=== PATIENT | male | born 1975 | race Caucasian/White ===

== ENCOUNTER 2016-12-12 19:39 | Emergency (ER) | payer OTHER ==
[~2016-12-12] VITALS: Ht 180.3 cm; Wt 79.4 kg
[2016-12-12] MEDS ORDERED: LISI10TA2 PO (19:58)
[2016-12-12] MEDS ORDERED: ROSU10TA PO (19:58)
[2016-12-12] MEDS ORDERED: ASPI-586 PO (19:58)
--- NOTE | 2016-12-12 21:02 | Diagnostic Imaging Report ---
INDICATION: Inhalation event while cooking. TECHNIQUE: Two view chest 8:21 PM CORRELATION STUDY: None FINDINGS: The heart size, mediastinal configuration and pulmonary vasculature are within normal limits. The lungs are clear with no consolidating infiltrate. There is no significant pleural effusion or pneumothorax. Visualized osseous structures are unremarkable. IMPRESSION: 1. Negative -2 view chest. Dictated by: Dictated on workstation # [id number]
--- NOTE | 2016-12-12 21:14 | Diagnostic Imaging Report ---
INDICATION: Cooking when accidentally inhaled a bay leaf. Feels like in throat. TECHNIQUE: AP and lateral view soft tissue neck. CORRELATION STUDY: None FINDINGS: Thoracic spinal alignment relatively anatomic. Prevertebral soft tissues unremarkable. Airway unremarkable. Definitive radiographic foreign body is not visualized. However, reported inhaled leaf would likely be radiographically occult. IMPRESSION: 1. Unremarkable soft tissue neck examination. Dictated by: Dictated on workstation # [id number]
--- NOTE | 2016-12-12 21:15 | ED EENT ---
History of Present Illness General Chief Complaint: Foreign Body Stated Complaint: INHALED A BAY LEAF Nursing Triage Note: PT REPORTS HE INHALED BAY LEAF ET CAN FEEL IT IN HIS THROAT, MOVING UP ET DOWN. HE IS ABLE TO SWALLOW FLUIDS. HE REPORTS IT IS MAKING HIM INCREASINGLY ANXIOUS ET HE DIDN'T WANT TO BECOME TO ANXIOUS IN FRONT OF HIS KIDS AT HOME. Source: patient History of Present Illness Time seen by provider: 19:53 Initial Comments PT STATES HE WAS COOKING CHILI, AND TOOK A BITE AND SWALLOWED A COUPLE OF LITTLE BAY LEAVES AND FEELS LIKE ONE IS STUCK IN HIS THROAT OCCURRED 30 MINUTES AGO STATES HE FEELS LIKE THE ROUGH EDGES ARE SCRATCHING HIS THROAT AT TIMES AND MOVING IN HIS THROAT, AND IT IS MAKING HIM FEEL REAL ANXIOUS NO PROBLEMS BREATHING OR WHEEZING NO PROBLEMS SWALLOWING SALIVA. DID TRY TO GARGLE VERY BRIEFLY, BUT THEN JUST CAME HERE HAS NOT TRIED TO EAT OR DRINK SINCE THIS HAPPENED. NO HISTORY OF SIMILAR PCP: DR. CONTRERAS, BENJAMIN Allergies and Home Medications Allergies Coded Allergies: No Known Drug Allergies (Unverified , 12/12/16) Home Medications Aspirin 81 Mg Tablet.dr, 81 MG PO DAILY, (Reported) Lisinopril 10 Mg Tablet, 10 MG PO DAILY, (Reported) Rosuvastatin Calcium 10 Mg Tablet, 10 MG PO DAILY, (Reported) Review of Systems Constitutional: no symptoms reported Eyes: No Symptoms Reported Ears: No Symptoms Reported Nose: no symptoms reported Throat: see HPI Respiratory: no symptoms reported Cardiovascular: no symptoms reported Gastrointestinal: no symptoms reported Musculoskeletal: no symptoms reported Skin: no symptoms reported Neurological: See HPI, Anxiety Past Mloqfsc-Ipaadk-Clllad Hx Patient Social History Alcohol Use: Occasionally Uses Recreational Drug Use: No Smoking Status: Never a Smoker Recent Foreign Travel: No Contact w/Someone Who Travel: No Recent Infectious Disease Expo: No Recent Hopitalizations: No Surgeries HX Surgeries: No Respiratory Hx Respiratory Disorders: No Cardiovascular Hx Cardiac Disorders: Yes (STATES HE HAS "3 LESIONS ON HIS RIGHT MAIN CORONARY ARTERY" FOUND ON A CT SCAN, TATE SNOT HAD A CARDIAC CATH OR STRESS TEST. ) Cardiac Disorders: Coronary Artery Disease, High Cholesterol, Hypertension Neurological Hx Neurological Disorders: No Genitourinary Hx Genitourinary Disorders: No Gastrointestinal Hx Gastrointestinal Disorders: No Musculoskeletal Hx Musculoskeletal Disorders: No Endocrine Hx Endocrine Disorders: No HEENT HX ENT Disorders: No Cancer Hx Cancer: No Psychosocial Hx Psychiatric Problems: Yes Behavioral Health Disorders: Anxiety, Depression Integumentary HX Skin/Integumentary Disorder: No Blood Transfusions Hx Blood Disorders: No Family Medical History Significant Family History: CAD Under 55 Years Old (FATHER) Physical Exam Vital Signs Vital Sign - Last 12Hours 12/12/16 12/12/16 19:52 21:22 Temp 98.2 Pulse 89 Resp 22 B/P (MAP) 138/84 Pulse Ox 95 General Appearance: WD/WN, no apparent distress Mouth/Throat: normal mouth inspection, pharynx normal, No excessive drooling Neck: normal inspection Cardiovascular: regular rate, rhythm, no edema, no murmur Respiratory: normal breath sounds, no respiratory distress Neurologic/Psychiatric: anvilsmith II-XII nml as tested, no motor/sensory deficits, alert, oriented x 3 Skin: normal color, warm/dry Progress/Results/Core Measures Results/Orders My Orders Orders - DEYVI DEVINE DO Chest Pa/Lat (2 View) (12/12/16 19:55) Soft Tissue Neck (12/12/16 20:00) Vital Signs/I&O Vital Sign - Last 12Hours 12/12/16 12/12/16 19:52 21:22 Temp 98.2 Pulse 89 81 Resp 22 16 B/P (MAP) 138/84 Pulse Ox 95 Blood Pressure Mean: 102 Progress Note : Progress Note UNEVENTFUL ER STAY PT ADVISED OF POSSIBLE ABRASION TO THE AREA, OR POSSIBLE RESIDUAL FOOD / REPORTED BAY LEAF, STUCK IN THROAT PT ADVISED TO RETURN TO ER IF SYMPTOMS WORSEN OR IF HE HAS DIFFICULTY SWALLOWING OR BREATHING Diagnostic Imaging Comments CXR--NO ACUTE PROCESS NECK SOFT TISSUE XRAYS--NO ACUTE PROCESS PER RADIOLOGIST REPORTS AT 2115 Reviewed: Reviewed by Me Departure Impression Impression: Primary Impression: Foreign body sensation in throat Disposition: 01 HOME, SELF-CARE Condition: Stable Departure-Patient Inst. Referrals: NO,LOCAL PHYSICIAN (PCP) Primary Care Physician Patient Instructions: Foreign Body, Swallowed, Adult (DC) Add. Discharge Instructions: EATING AND DRINKING USUAL FOLLOW UP WITH YOUR DR IN 1-2 DAYS IF NO IMPROVEMENT RETURN TO ER IF WORSE All discharge instructions reviewed with patient and/or family. Voiced understanding. DEYVI DEVINE DO December 12, 2016 21:15
[2016-12-12 21:22] VITALS: BP 131/91
== END 2016-12-12 21:22 | disposition home or self-care (01) ==
LOC: ER 19:44
DX: R09.89 Other specified symptoms and signs involving the circulatory and respiratory systems (principal)
CPT/HCPCS: 70360; 71020; 99282

== ENCOUNTER → 2018-08-29 | Outpatient (CLI) | payer BC ==
[~2018-08-29] MED LIST: ASPI-586 PO; LISI10TA2 PO; ROSU10TA PO
[2018-08-29 11:18] LABS: BASOPHILS % (AUTO) 0 % (0-10); EOSINOPHILS # (AUTO) 0.1 10^3/uL (0.0-0.3); EOSINOPHILS % (AUTO) 2 % (0-10); HEMATOCRIT 39 % (40-54); LYMPHOCYTES % (AUTO) 37 % (12-44); MEAN CORPUSCULAR HEMOGLOBIN 32 PG (25-34); MEAN CORPUSCULAR HGB CONC 36 G/DL (32-36); MEAN CORPUSCULAR VOLUME 88 FL (80-99); MEAN PLATELET VOLUME 9.2 FL (7.4-10.4); MONOCYTES # (AUTO) 0.4 X 10^3 (0.0-1.0); MONOCYTES % (AUTO) 7 % (0-12); NEUTROPHILS % (AUTO) 54 % (42-75); PLATELET COUNT 219 10^3/uL (130-400); RED CELL DISTRIBUTION WIDTH 12.2 % (10.0-14.5); WHITE BLOOD COUNT 5.5 10^3/uL (4.3-11.0)
[2018-08-29 11:42] LABS: ALANINE AMINOTRANSFERASE 52 U/L (0-55); ALBUMIN 4.6 GM/DL (3.2-4.5); ALKALINE PHOSPHATASE 50 U/L (40-136); BILIRUBIN,TOTAL 0.5 MG/DL (0.1-1.0); BUN/CREATININE RATIO 18; CALCIUM 9.6 MG/DL (8.5-10.1); CARBON DIOXIDE 23 MMOL/L (21-32); CHLORIDE 105 MMOL/L (98-107); CHOLESTEROL 153 MG/DL (< 200); CREATININE SERUM 0.78 MG/DL (0.60-1.30); GFR ESTIMATED > 60; GLUCOSE 101 MG/DL (70-105); HDL CHOLESTEROL 38 MG/DL (40-60); SODIUM 139 MMOL/L (135-145); TOTAL PROTEIN 7.5 GM/DL (6.4-8.2); TRIGLYCERIDES 155 MG/DL (<150); VLDL CHOLESTEROL 31 MG/DL (5-40)
== END ==
LOC: LAB 11:01
PROVIDERS: ATTEND Family Medicine
DX: Z00.00 Encounter for general adult medical examination without abnormal findings (principal); E78.5 Hyperlipidemia, unspecified; I10 Essential (primary) hypertension; R35.0 Frequency of micturition; R35.1 Nocturia; Z83.3 Family history of diabetes mellitus
CPT/HCPCS: 36415; 80053; 80061; 83036; 84153; 85025

== ENCOUNTER 2019-07-02 11:16 | Outpatient (RCR) | payer BC ==
[~2019-07-02 11:16] MED LIST changes: -ROSU10TA PO; +ROSU10TA22 PO
== END 2019-09-30 | disposition home or self-care (01) ==
LOC: LAB 11:16
PROVIDERS: ATTEND Obstetrics & Gynecology
DX: N46.9 Male infertility, unspecified (principal)
CPT/HCPCS: 89320

== ENCOUNTER → 2021-09-22 | Outpatient (CLI) | payer BC ==
[~2021-09-22] MED LIST changes: +BUPR150T24 PO; +CLON1TAB13 PO; +DOXE100C4 PO; -LISI10TA2 PO; +LISI10TA25 PO; +MULT-1136 PO; +MV-M1TAB20 PO; +OMEP40CA6 PO; +OMG1KC PO
[2021-09-22 08:42] LABS: HEMATOCRIT 41 % (40-54); HEMOGLOBIN 14.5 g/dL (13.3-17.7); MEAN CORPUSCULAR HEMOGLOBIN 31 pg (25-34); MEAN CORPUSCULAR HGB CONC 35 g/dL (32-36); MEAN CORPUSCULAR VOLUME 89 fL (80-99); MEAN PLATELET VOLUME 9.5 fL (9.0-12.2); PLATELET COUNT 204 10^3/uL (130-400); WHITE BLOOD COUNT 6.8 10^3/uL (4.3-11.0)
[2021-09-22 09:02] LABS: ALBUMIN 4.3 GM/DL (3.2-4.5); BILIRUBIN,TOTAL 0.6 MG/DL (0.1-1.0); CALCIUM 9.5 MG/DL (8.5-10.1); CREATININE SERUM 0.89 MG/DL (0.60-1.30); POTASSIUM 4.2 MMOL/L (3.6-5.0); TOTAL PROTEIN 7.7 GM/DL (6.4-8.2)
== END ==
LOC: LAB 08:17
DX: Z00.00 Encounter for general adult medical examination without abnormal findings (principal); E78.2 Mixed hyperlipidemia
CPT/HCPCS: 36415; 80053; 80061; 84443; 85027

== ENCOUNTER 2021-09-25 05:35 | Outpatient (RCR) | payer BC ==
[~2021-09-25] VITALS: Ht 180.3 cm; Wt 76.0 kg
[2021-09-27] MEDS ORDERED: PANT40TA2 PO (12:26)
== END 2021-10-09 | disposition home or self-care (01) ==
LOC: PREOP 05:35
PROVIDERS: ATTEND Surgery
DX: Z01.812 Encounter for preprocedural laboratory examination (principal); Z12.11 Encounter for screening for malignant neoplasm of colon; K21.9 Gastro-esophageal reflux disease without esophagitis; Z20.822 Contact with and (suspected) exposure to COVID-19
CPT/HCPCS: 87635

== ENCOUNTER 2021-09-27 11:28 | Day surgery (SDC) | payer BC ==
[~2021-09-27] VITALS: Ht 180 cm; Wt 76.0 kg
[2021-09-27] MEDS ORDERED: LACTATED RINGERS 1,000 ML IV ONE (11:36)
[2021-09-27 11:40] VITALS: BP 134/79
[2021-09-27] MEDS ORDERED: LACTATED RINGERS 1,000 ML IV STA (11:46)
[2021-09-27] MEDS ORDERED: LIDOCAINE JELLY 2% 6 ML SYRINGE MM PRN (12:00)
[2021-09-27] MEDS ORDERED: HURRICAINE EXT TUBE (BENZOCAINE) XX PRN (12:00)
--- NOTE | 2021-09-27 12:25 | Progress Note-Pre Operative ---
Pre-Operative Progress Note H&P Reviewed The H&P was reviewed, patient examined and no changes noted. Date Seen by Provider: Sep 27, 2021 Time Seen by Provider: 12:00 Date H&P Reviewed: Sep 27, 2021 Time H&P Reviewed: 12:00 Pre-Operative Diagnosis: GERD, screening colo EMILY AREVALO MD Sep 27, 2021 12:25
[2021-09-27] MEDS ORDERED: PANT40TA2 PO (12:26)
--- NOTE | 2021-09-27 12:27 | Discharge Inst-Surgical ---
D/C Lap Instructions-IRINA Follow Up Appt in 2 weeks Activity as tolerated High Fiber Diet 25g or more per day Avoid Alcohol, Caffeine, Spicy [place] and Acid foods. Drink 64 fluid oz or more of fluids per day. Symptoms to Report: Fever over 101 degree F, Nausea/Vomiting If any problems/questions: Contact your physician or go to Emergency Room EMILY AREVALO MD Sep 27, 2021 12:27
[2021-09-27] MEDS ORDERED: ONDANSETRON 4 MG (ZOFRAN) ORAL DISSOLVE TAB PO PRN (12:30)
[2021-09-27] MEDS ORDERED: ONDANSETRON 4 MG/2 ML (SDV) Z0FRAN IVP PRN (12:30)
[2021-09-27] MEDS ORDERED: PROPOFOL INJECTION 50 ML IV ONE (13:40)
[2021-09-27] MEDS ORDERED: MIDAZOLAM 2 MG/2 ML (VERSED) VIAL ONE (13:59)
[2021-09-27 14:40] VITALS: BP 97/54
--- NOTE | 2021-09-27 14:42 | Anesthesia-General Post-Op ---
MAC Patient Condition Mental Status/LOC: Same as Preop Cardiovascular: Satisfactory Nausea/Vomiting: Absent Respiratory: Satisfactory Pain: Controlled Complications: Absent Post Op Complications Complications None Follow Up Care/Instructions Patient Instructions None needed. Anesthesiology Discharge Order Discharge Order Patient is doing well, no complaints, stable vital signs, no apparent adverse anesthesia problems. No complications reported per nursing. GERALDO SAXENA CRNA Sep 27, 2021 14:42
[2021-09-27 14:45] VITALS: BP 99/58
[2021-09-27 14:50] VITALS: BP 115/69
--- NOTE | 2021-09-27 14:51 | Progress Note-Post Operative ---
Post-Operative Progess Note Surgeon (s)/[employer] (s) Surgeon EMILY AREVALO MD [employer]: none Pre-Operative Diagnosis GERD, screening colo Post-Operative Diagnosis reflux esophagitis(grade 2), small HH(2cm), moderate gastritis. normal colon and rectum Procedure & Operative Findings Date of Procedure 09/27/21 Procedure Performed/Findings EGD with bx. colonoscopy. Anesthesia Type mac Estimated Blood Loss Estimated blood loss (mL): minimal Specimens/Packing Specimens Removed ge jxn, antrum EMILY AREVALO MD Sep 27, 2021 14:51
[2021-09-27 15:20] VITALS: BP 140/83
[2021-09-27 15:33] VITALS: BP 140/83
--- NOTE | 2021-09-27 17:23 | OPERATIVE REPORT ---
DATE OF SERVICE: 09/27/2021 ATTENDING PRIMARY CARE PHYSICIAN: Anirudh Lozada MD PREOPERATIVE DIAGNOSES: Gastroesophageal reflux disease, screening colonoscopy. POSTOPERATIVE DIAGNOSES: Reflux esophagitis, Gordon grade II, small hiatal hernia approximately 2 cm in size, moderate gastritis, normal colon and rectum. PROCEDURE: EGD with biopsy, colonoscopy. SURGEON: Emily Arevalo MD ANESTHESIA: Monitored anesthesia care. ESTIMATED BLOOD LOSS: Minimal. FINDINGS: Same as postoperative diagnoses. DISPOSITION: The patient tolerated the procedure well. INDICATIONS: The patient is a 45-year-old male referred over to us for screening colonoscopy. He has not had a colonoscopy up to this point in his life. He does not report any major issues with diarrhea nor constipation as well as no red blood per rectum nor any dark tarry stools. He also does not know of any family history of colon cancer. He has been having issues with heartburn and states he has been taken omeprazole for several years, which initially helped; however, has become less effective. He does not report any parveen episodes of nausea or vomiting as well as no coffee-ground emesis or any hematemesis. DESCRIPTION OF PROCEDURE: The patient was brought to the endoscopy suite, laid in left lateral decubitus position. After adequate IV pain and sedative medications and monitored anesthesia care, the mouthpiece was applied. The endoscope was placed in the mouth, visualizing the pharynx and hypopharyngeal region. Vocal cords, epiglottis and vallecula identified and appeared to be normal. Endoscope was then gently intubated the esophageal opening and esophagus insufflated. The endoscope was then advanced through the first, second and third portion of esophagus at the level of the GE junction, a reflux esophagitis, Gordon grade II identified. No ulcers or strictures identified in this region. A biopsy was taken with forceps with visualization of good hemostasis. The endoscope was then advanced in the stomach and endoscope retroflexed, visualizing a small hiatal hernia approximately 2 cm in size. There was a moderate severity gastritis. No formal ulcerations, polyps, or any neoplasms. A biopsy was taken of the antrum to rule out H. pylori with visualization of good hemostasis. Endoscope was then advanced to the pylorus and the first and second portion of the duodenum, which appeared normal. The endoscope was then slowly withdrawn while taking a second look and suctioning of residual air with no additional findings. A digital rectal examination was performed, which revealed no significant hemorrhoids. Normal sphincter tone was felt and there were no palpable masses. Prostate gland was palpable and appeared normal. The endoscope was then intubated into the anus and rectum gently insufflated. The endoscope was then advanced through the valves of Ernandez of the rectum with no polyps or any neoplasms identified. The endoscope was then advanced through the sigmoid colon where no diverticulosis identified. The endoscope was then advanced through the remainder of the descending, transverse and ascending colon to the cecum, which were normal. There were no polyps or any neoplasms identified throughout the colon or rectum. Endoscope was then slowly withdrawn while taking a second look and suctioning of residual air with no additional findings. The patient tolerated the procedure well. We will recommend the necessary lifestyle and dietary accommodation including small and more frequent meals, avoidance of eating at night as well as head elevation while lying supine. He also needs to avoid caffeinated beverages, spicy, greasy and acidic foods. He is currently on omeprazole 40 mg daily and, however, we will also add pantoprazole 40 mg daily to be taken at a separate time during the day. We will also recommend a high fiber diet with incorporation of a fiber supplement, which should equal or exceed 30 grams daily to promote soft stools on a daily basis and if he is asymptomatic, he does not need another colonoscopy for another 10 years. Job ID: [id number] DocumentID: [id number] Dictated Date: 09/27/2021 14:44:51 [employer] [employer] Date: 09/27/2021 17:22:49 Dictated By: EMILY AREVALO MD
== END 2021-09-27 15:33 | disposition home or self-care (01) ==
LOC: ENDO 11:28
PROVIDERS: ATTEND Surgery
DX: Z12.11 Encounter for screening for malignant neoplasm of colon (principal); K21.00 Gastro-esophageal reflux disease with esophagitis, without bleeding; I10 Essential (primary) hypertension; K29.50 Unspecified chronic gastritis without bleeding; K44.9 Diaphragmatic hernia without obstruction or gangrene; F32.A Depression, unspecified; E78.5 Hyperlipidemia, unspecified; I25.10 Atherosclerotic heart disease of native coronary artery without angina pectoris; Z79.899 Other long term (current) drug therapy; Z79.82 Long term (current) use of aspirin